=== PATIENT | male | born 1950 | race Caucasian/White ===

== ENCOUNTER 2019-03-03 09:21 | Outpatient (CLI) | payer MEDICARE ==
--- NOTE | 2019-03-03 11:16 | RAD ---
Exam: Upper GI with air contrast: HISTORY: Reflux, esophagitis FINDINGS: Normal swallowing function. There is a moderate size hiatal hernia with multiple episodes of signific ant reflux up to the level of the upper esophagus. Irregular outpouching of the anterior aspect of the distal esophagus concerning for an esophageal ulcer. No constricting mass. Other than the hiatal hernia, the fundus, body, and antrum the stomach are within normal limits. Duodenal bulb and C-loop are normal. IMPRESSION: Moderate size hiatal hernia with marked gastroesophageal reflux. Irregular ulcer crater of the anteri or aspect of the distal esophagus just above the hiatal hernia.
== END 2019-03-03 09:22 | disposition home or self-care (01) ==
LOC: RAD 09:21
PROVIDERS: ATTEND Surgery
DX: K21.0 Gastro-esophageal reflux disease with esophagitis (principal); K44.9 Diaphragmatic hernia without obstruction or gangrene; K22.10 Ulcer of esophagus without bleeding
CPT/HCPCS: 74247

== ENCOUNTER 2021-01-13 08:48 | Outpatient (CLI) | payer MEDICARE ==
[2021-01-13 10:06] LABS: Hemoglobin 15.6 g/dL (13.5-17.5); Mean Corpuscular HGB CONC 33.4 g/dL (32.0-36.0); Mean Corpuscular Volume 95.9 fl (81.2-95.1); Mean Platelet Volume 10.6 fl (7.4-10.4); Platelet Count 268 10x3/uL (150-450); RBC Distribution Width 13.5 % (11.5-14.5); Red Blood Cell (RBC) Count 4.87 10x6/uL (4.32-5.72); White Blood Cell (WBC) Count 10.6 10x3/uL (3.5-10.5)
[2021-01-13 10:10] LABS: INR-International Normal Ratio 0.9; PTT 24.1 sec (22.0-33.0); Prothrombin Time 10.5 sec (9.5-12.1)
[2021-01-13 10:21] LABS: Anion Gap 14 mmol/L (10-20); BUN (Urea Nitrogen) 18 mg/dL (8.4-25.7); Calc. Creatinine Clearance 0 mL/min (70-130); Calcium 10.2 mg/dL (7.8-10.44); Carbon Dioxide 22 mmol/L (23-31); Chloride 103 mmol/L (98-107); Glucose 83 mg/dL (80-115); Potassium 4.3 mmol/L (3.5-5.1); Sodium 135 mmol/L (136-145)
[2021-01-14 00:34] LABS: SARS-CoV-2 PCR by NAA Not Detected (NotDetected)
== END 2021-01-13 08:49 | disposition home or self-care (01) ==
LOC: LABBT 08:48
PROVIDERS: ATTEND Surgery
DX: Z01.818 Encounter for other preprocedural examination (principal); M50.00 Cervical disc disorder with myelopathy, unspecified cervical region; M50.10 Cervical disc disorder with radiculopathy, unspecified cervical region; M48.02 Spinal stenosis, cervical region; Z20.822 Contact with and (suspected) exposure to COVID-19
CPT/HCPCS: 80048; 85027; 85610; 85730; 86850; 86900; 86901; 93005; U0003; U0005; 93010

== ENCOUNTER 2021-02-14 09:09 | Outpatient (CLI) | payer MEDICARE ==
[2021-02-14 12:33] LABS: Mean Corpuscular HGB CONC 33.3 g/dL (32.0-36.0); Mean Corpuscular Hemoglobin 32.3 pg (27.0-33.0); Mean Platelet Volume 11.4 fl (7.4-10.4); Platelet Count 225 10x3/uL (150-450); Red Blood Cell (RBC) Count 4.64 10x6/uL (4.32-5.72); White Blood Cell (WBC) Count 5.5 10x3/uL (3.5-10.5)
[2021-02-14 12:35] LABS: INR-International Normal Ratio 0.9; PTT 25.9 sec (22.0-33.0); Prothrombin Time 10.3 sec (9.5-12.1)
[2021-02-14 13:18] LABS: Anion Gap 13 mmol/L (10-20); BUN (Urea Nitrogen) 14 mg/dL (8.4-25.7); Calc. Creatinine Clearance 0 mL/min (70-130); Calcium 9.6 mg/dL (7.8-10.44); Carbon Dioxide 23 mmol/L (23-31); Chloride 108 mmol/L (98-107); Glucose 85 mg/dL (80-115); Potassium 4.2 mmol/L (3.5-5.1); Sodium 140 mmol/L (136-145)
[2021-02-15 00:58] LABS: SARS-CoV-2 PCR by NAA Not Detected (NotDetected)
== END 2021-02-14 09:10 | disposition home or self-care (01) ==
LOC: LABBT 09:09
PROVIDERS: ATTEND Surgery
DX: Z01.812 Encounter for preprocedural laboratory examination (principal); M50.10 Cervical disc disorder with radiculopathy, unspecified cervical region; M48.02 Spinal stenosis, cervical region; Z20.822 Contact with and (suspected) exposure to COVID-19
CPT/HCPCS: 80048; 85027; 85610; 85730; 86850; 86900; 86901; U0003; U0005

== ENCOUNTER 2021-02-17 05:56 | Observation (INO) | payer MEDICARE ==
[2021-01-13 10:06] LABS: Hemoglobin 15.6 g/dL (13.5-17.5); Mean Corpuscular HGB CONC 33.4 g/dL (32.0-36.0); Mean Corpuscular Volume 95.9 fl (81.2-95.1); Mean Platelet Volume 10.6 fl (7.4-10.4); Platelet Count 268 10x3/uL (150-450); RBC Distribution Width 13.5 % (11.5-14.5); Red Blood Cell (RBC) Count 4.87 10x6/uL (4.32-5.72); White Blood Cell (WBC) Count 10.6 10x3/uL (3.5-10.5)
[2021-01-13 10:10] LABS: INR-International Normal Ratio 0.9; PTT 24.1 sec (22.0-33.0); Prothrombin Time 10.5 sec (9.5-12.1)
[2021-01-13 10:21] LABS: Anion Gap 14 mmol/L (10-20); BUN (Urea Nitrogen) 18 mg/dL (8.4-25.7); Calc. Creatinine Clearance 0 mL/min (70-130); Calcium 10.2 mg/dL (7.8-10.44); Carbon Dioxide 22 mmol/L (23-31); Chloride 103 mmol/L (98-107); Glucose 83 mg/dL (80-115); Potassium 4.3 mmol/L (3.5-5.1); Sodium 135 mmol/L (136-145)
[2021-01-14 00:34] LABS: SARS-CoV-2 PCR by NAA Not Detected (NotDetected)
[2021-02-16 11:30] VITALS: BMI 23.7
[2021-02-17] MEDS ORDERED: ceFAZolin 2 GM/DEX 5% 100 ML BAG ONE (06:30)
[2021-02-17] MEDS ORDERED: Ondansetron PF 4 MG/2 ML Vial ONE ×2 (06:37→08:03)
[2021-02-17] MEDS ORDERED: Scopolamine 1.5 mg/72 hour Patch ONE (06:38)
[2021-02-17] MEDS ORDERED: Fentanyl 250 MCG/5 ML VIAL ONE (06:40)
[2021-02-17] MEDS ORDERED: Midazolam HCl 2 mg/2 ml Vial ONE (06:40)
[2021-02-17] MEDS ORDERED: Thrombin 5000 UNITS/5 ML VIAL ONE (07:11)
[2021-02-17] MEDS ORDERED: Lidocaine Viscous Sol 2% 15 ml UD Cup ONE (07:22)
[2021-02-17] MEDS ORDERED: PROPOFOL 200 MG/20 ML VIAL ONE (08:03)
[2021-02-17] MEDS ORDERED: Ketorolac Tromethamine 30 MG/ML VIAL ONE (08:03)
[2021-02-17] MEDS ORDERED: Rocuronium Bromide 10 MG/ML (10ML VIAL) ONE (08:03)
[2021-02-17] MEDS ORDERED: Dexamethasone 20 MG/5 ML VIAL ONE (08:03)
[2021-02-17] MEDS ORDERED: ePHEDrine 50 MG/ML VIAL ONE (08:03)
[2021-02-17] MEDS ORDERED: Glycopyrrolate 0.2 MG/ML 5 ML SYRINGE ONE (08:03)
[2021-02-17] MEDS ORDERED: Dexamethasone 4 mg/ml Vial SLOW IVP PRN (10:37)
[2021-02-17] MEDS ORDERED: Acetaminophen/Codeine 30-300mg Tablet PO PRN (10:37)
[2021-02-17] MEDS ORDERED: traMADol HCl 50 MG TAB PO PRN (10:37)
[2021-02-17] MEDS ORDERED: Acetaminophen 325 MG TAB PO PRN (10:37)
[2021-02-17] MEDS ORDERED: Ondansetron PF 4 MG/2 ML Vial IVP PRN (10:37)
[2021-02-17] MEDS ORDERED: tiZANidine HCl 4 MG TAB PO PRN (10:37)
[2021-02-17] MEDS ORDERED: HYDROcodone/Acetaminophen 7.5/325 mg Tablet PO PRN (10:37)
[2021-02-17] MEDS ORDERED: Fentanyl 100 MCG/2 ML VIAL ONE (10:48)
[2021-02-17] MEDS ORDERED: HYDROmorphone 2 MG/ML VIAL ONE (10:55)
[2021-02-17] MEDS ORDERED: Morphine 4 MG/ML VIAL SLOW IVP PRN (10:58)
[2021-02-17] MEDS ORDERED: tiZANidine HCl 4 MG TAB ONE (11:01)
[2021-02-17] MEDS: Sodium Chloride 0.9% 1,000 ML IV SCH (12:35)
[2021-02-17] MEDS: CEFAZOLIN 2 GM in Sodium Chloride 0.9% 100 ML IVPB SCH ×2 (13:53→20:10)
[2021-02-17] MEDS ORDERED: Ketorolac Tromethamine 0.5% Ophth Soln 3 ml Bottle L EYE SCH (17:00)
[2021-02-17] MEDS: Ketorolac Tromethamine 0.5% Ophth Soln 3 ml Bottle L EYE SCH (20:09)
[2021-02-18] MEDS: Sodium Chloride 0.9% 1,000 ML IV SCH ×2 (00:07→12:35)
[2021-02-18] MEDS: CEFAZOLIN 2 GM in Sodium Chloride 0.9% 100 ML IVPB SCH (05:07)
[2021-02-18] MEDS: Ketorolac Tromethamine 0.5% Ophth Soln 3 ml Bottle L EYE SCH ×2 (08:28→12:32)
[2021-02-18 12:02] VITALS: BP 127/83; TEMP 97.5
== END 2021-02-18 13:02 | disposition home or self-care (01) ==
LOC: SDC 05:56 → SURG B 10:36
PROVIDERS: ADMIT Surgery; ATTEND Surgery
PROC: 0RG10A0 Fusion of Cervical Vertebral Joint with Interbody Fusion Device, Anterior Approach, Anterior Column, Open Approach (ICD-10-PCS; principal; 2021-02-17)
DX: M48.02 Spinal stenosis, cervical region (principal); M50.01 Cervical disc disorder with myelopathy, high cervical region; M50.11 Cervical disc disorder with radiculopathy, high cervical region; M48.12 Ankylosing hyperostosis [Forestier], cervical region; M25.78 Osteophyte, vertebrae; Z20.822 Contact with and (suspected) exposure to COVID-19
CPT/HCPCS: 20930; 20936; 22551; 22853; 96374; 96376 ×2; C1713 ×3; C1776 ×2; G0378 ×2; 76000; 80048; 85027; 85610; 85730; 86850; 86900; 86901; J0690; J1100; J1170; J1885; J2250; J2405; J2704; J3010; J3490; U0003; U0005

== ENCOUNTER 2023-06-18 09:52 | Inpatient (IN) | payer MEDICARE ==
[2023-06-14 10:46] VITALS: BMI 24.1
[2023-06-18] MEDS ORDERED: EPINEPHrine 1 MG/ML VIAL ONE (11:05)
[2023-06-18] MEDS ORDERED: Bupivacaine 0.25% HCL 30 ML VIAL ONE (11:05)
[2023-06-18] MEDS ORDERED: Sodium Chloride 0.9% 100 ML ONE (11:36)
[2023-06-18] MEDS ORDERED: CEFAZOLIN 2 GM VIAL ONE (11:36)
[2023-06-18] MEDS ORDERED: Dexamethasone 4 mg/ml Vial ONE (11:43)
[2023-06-18] MEDS ORDERED: PROPOFOL 40 ML ONE (11:43)
[2023-06-18] MEDS ORDERED: Lidocaine 2% PF 5 ML VIAL ONE (11:43)
[2023-06-18] MEDS ORDERED: fentaNYL PF 100 MCG/2 ML SYRINGE ONE ×5 (11:43→17:58)
[2023-06-18] MEDS ORDERED: Rocuronium Bromide 10 MG/ML (10ML VIAL) ONE ×2 (11:43→15:23)
[2023-06-18] MEDS ORDERED: SUGAMMADEX SODIUM 200 MG/2 ML VIAL ONE ×2 (12:05→16:59)
[2023-06-18] MEDS ORDERED: Midazolam HCl 2 mg/2 ml Vial ONE ×2 (12:05→17:15)
[2023-06-18] MEDS ORDERED: ePHEDrine Sulfate 50 MG/10 ML VIAL ONE (12:30)
[2023-06-18] MEDS ORDERED: Esmolol 100 MG/10 ML VIAL ONE (12:48)
[2023-06-18] MEDS ORDERED: PHENYLEPHRINE-NS 100 MCG/ML 10 ML SYRINGE ONE ×2 (12:48→15:16)
[2023-06-18] MEDS ORDERED: HYDROmorphone 2 MG/ML VIAL SLOW IVP PRN ×2 (14:09→17:28)
[2023-06-18] MEDS ORDERED: Promethazine HCl 25 MG/ML VIAL IM PRN ×3 (14:09→17:28)
[2023-06-18] MEDS ORDERED: Ondansetron HCl/PF 4 MG/2 ML Vial IVP PRN ×2 (14:09→17:28)
[2023-06-18] MEDS ORDERED: Vasopressin 20 UNITS/ML VIAL ONE (15:19)
[2023-06-18] MEDS ORDERED: Phenylephrine 40 MG/NS 250 ML 250 ML ONE (15:47)
[2023-06-18] MEDS ORDERED: Albuterol HFA (OR) 200 PUFF INH ONE (16:13)
[2023-06-18] MEDS ORDERED: Dextrose 50% Abboject 50 ML SYRINGE SLOW IVP PRN (17:00)
[2023-06-18] MEDS ORDERED: Morphine 2 MG/ML VIAL SLOW IVP PRN (17:00)
[2023-06-18] MEDS ORDERED: Hydrocodone-Acetamin 15 ML UDCUP PO PRN (17:00)
[2023-06-18] MEDS ORDERED: hydrALAZINE 20 MG/ML VIAL SLOW IVP PRN (17:00)
[2023-06-18] MEDS ORDERED: diphenhydrAMINE 50 MG/ML VIAL IVP PRN (17:00)
[2023-06-18] MEDS ORDERED: Ondansetron PF 4 MG/2 ML Vial IVP PRN (17:00)
[2023-06-18] MEDS ORDERED: Ipratropium/Albuterol 3 ML NEB NEB PRN (17:00)
[2023-06-18] MEDS ORDERED: Glucagon 1 MG/ML KIT IM PRN (17:00)
[2023-06-18] MEDS ORDERED: Dextrose 5% in Water 1,000 ML IV PRN (17:00)
[2023-06-18] MEDS ORDERED: fentaNYL 50 mcg/mL 1 mL Vial ONE ×2 (17:12→17:15)
[2023-06-18] MEDS ORDERED: HYDROmorphone 0.5 MG/0.5 ML SYRINGE ONE (17:28)
[2023-06-18] MEDS ORDERED: Ketorolac Tromethamine 30 MG (1 mL) VIAL ONE (17:59)
[2023-06-18] MEDS: Ketorolac Tromethamine 30 MG (1 mL) VIAL IVP SCH (18:59)
[2023-06-18] MEDS: D5 1/2 NS w/20 mEq KCL 1,000 ML IV SCH (19:06)
[2023-06-19 05:23] LABS: #Monocytes 1.1 thou/uL (0.11-0.59); #Neutrophils 9.8 thou/uL (1.40-6.50); %Basophils 0.2 % (0.0-1.0); %Lymphocytes 12.8 % (21.0-51.0); %Monocytes 8.6 % (0.0-10.0); Hematocrit 39.4 % (42.0-52.0); Hemoglobin 13.1 g/dL (14.0-18.0); Mean Corpuscular HGB CONC 33.2 g/dL (32.0-36.0); Mean Corpuscular Hemoglobin 31.3 pg (27.0-31.0); Mean Platelet Volume 11.1 fL (7.4-10.4); Platelet Count 160 10x3/uL (130-400); RBC Distribution Width 12.5 % (11.5-14.5); Red Blood Cell (RBC) Count 4.19 mill/uL (4.70-6.10); White Blood Cell (WBC) Count 12.6 10x3/uL (4.8-10.8)
[2023-06-19 05:47] LABS: Anion Gap 10 mmol/L (10-20); BUN (Urea Nitrogen) 15 mg/dL (8.4-25.7); Calc. Creatinine Clearance 86 mL/min (70-130); Calcium 8.2 mg/dL (7.8-10.44); Carbon Dioxide 28 mmol/L (23-31); Chloride 105 mmol/L (98-107); Estimated GFR 91; Glucose 119 mg/dL (80-115); Potassium 4.7 mmol/L (3.5-5.1); Sodium 138 mmol/L (136-145)
[2023-06-19] MEDS: Enoxaparin 40 MG (0.4 mL) SYRINGE SC SCH (08:21)
[2023-06-19] MEDS: Pantoprazole 40 MG VIAL IVP SCH (08:21)
[2023-06-19 08:27] VITALS: BP 110/71; TEMP 97.7
[2023-06-19] MEDS ORDERED: Ketorolac Tromethamine 30 MG (1 mL) VIAL IVP SCH (15:00)
== END 2023-06-19 11:25 | disposition home or self-care (01) | DRG 328 ==
LOC: SDC 09:52 → MSONC 17:00
PROVIDERS: ADMIT Surgery; ATTEND Surgery
PROC: 0FT44ZZ Resection of Gallbladder, Percutaneous Endoscopic Approach (ICD-10-PCS; principal; 2023-06-18)
PROC: 0BQT4ZZ Repair Diaphragm, Percutaneous Endoscopic Approach (ICD-10-PCS; 2023-06-18)
PROC: 8E0W4CZ Robotic Assisted Procedure of Trunk Region, Percutaneous Endoscopic Approach (ICD-10-PCS; 2023-06-18)
DX: K44.9 Diaphragmatic hernia without obstruction or gangrene (principal); K21.9 Gastro-esophageal reflux disease without esophagitis; K80.20 Calculus of gallbladder without cholecystitis without obstruction; Z79.899 Other long term (current) drug therapy
CPT/HCPCS: 36415; 36416; 71045; 80048; 85025; 88304; C1776; C9113; J0171; J0665; J1100; J1170; J1650; J1885; J2001; J2250; J2704; J3010; J3480; J3490